=== PATIENT | male | born 1995 | race Caucasian/White ===

== ENCOUNTER 2017-08-05 13:27 | Inpatient (IN) | payer OTHER ==
[2017-08-05 14:49] VITALS: BMI 36.9
--- NOTE | 2017-08-05 15:46 | HP ---
COWS - Scale Resting Pulse: 1= [place] 81-100 Sweatin=Flushed/Facial Moisture Restless Observation: 3= Extraneous Movement Pupil Size: 2= Moderately Dilated Bone or Joint Aches: 2= Severe Diffuse Aches Runny Nose/ Eye Tearin= Runny Nose/Eyes GI Upset > 30mins: 3= Vomiting/Diarrhea Tremor Observation: 2= Slight Tremor Visible Yawning Observation: 2= >3x During Session Anxiety or Irritability: 2=Irritable/Anxious Goose Flesh Skin: 0=Smooth Skin COWS Score: 21 CIWA Score - CIWA Score Nausea/Vomitin Muscle Tremors: 3 Anxiety: 3 Agitation: 3 Paroxysmal Sweats: 2 Orientation: 0-Oriented Tacttile Disturbances: 2-Mild Itch/Numbness/Burn Auditory Disturbances: 2-Mild Harshness/Frighten Visual Disturbances: 1-Very Mild Sensitivity Headache: 2-Mild CIWA-Ar Total Score: 21 Admission ROS BHS - HPI Chief Complaint: i need help tto stop using xanax,oxycodone and marijuana Allergies/Adverse Reactions: Allergies Allergy/AdvReac Type Severity Reaction Status Date / Time No Known Allergies Allergy Verified 08/05/17 15:39 History of Present Illness: this 22 years old male with xanax,oxycodone,marijuana dependence,seeking detox, withdrawal symptom,never been in detox before, anxiety,insomnia denied medical problem seeking detox no signifiant period of sobriety - Ebola screening Have you traveled outside of the country in the last 21 days: No Have you had contact with anyone from an Ebola affected area: No Have you been sick,other than usual withdrawal symptoms: No Patient History - Patient Surgical History Past Surgical History: Yes Hx Breast Surgery: Yes (for gynecomastia at age of 15 years) - Smoking Cessation Smoking history: Current every day smoker Aproximately how many cigarettes per day: 3 Cigars Per Day: 0 Hx Chewing Tobacco Use: No Initiated information on smoking cessation: Yes 'Breaking Loose' booklet given: 08/05/17 - Substance & Tx. History Hx Alcohol Use: No Hx Substance Use: Yes Substance Use Type: Marijuana, Opiates, Tranquilizers - Substances Abused Alprazolam (Xanax) Route: Oral Frequency: Daily Amount used: 4mg Age of first use: 19 Date of Last Use: 08/04/17 Marijuana/Hashish Route: Smoking Frequency: 1-3 times last 30 days Amount used: 1 joint Age of first use: 16 Date of Last Use: 08/04/17 oxycodone Route: Oral Frequency: Daily Amount used: 2-3 30mg pills Age of first use: 19 Date of Last Use: 08/04/17 Family Disease History - Family Disease History Family History: Denies Admission Physical Exam [facility] - Vital Signs Vital Signs: Vital Signs - 24 hr 08/05/17 14:47 Temperature 98 F Pulse Rate 93 H Respiratory 20 Rate Blood Pressure 129/86 - Physical General Appearance: Yes: Moderate Distress, Tremorous, Irritable, Sweating HEENTM: Yes: CHELITA, Pharynx Normal, Tm's normal Respiratory: Yes: Lungs Clear, Normal Breath Sounds, No Respiratory Distress Neck: Yes: Within Normal Limits, Supple, Trachea in good position Breast: Yes: Surgical Scar (s/p bilateral gynocomastia) Cardiology: Yes: Within Normal Limits, Regular Rhythm, Regular Rate, S1, S2 Abdominal: Yes: Within Normal Limits, Normal Bowel Sounds, Non Tender, Flat, Soft Genitourinary: Yes: Within Normal Limits Back: Yes: Muscle Spasm Musculoskeletal: Yes: full range of Motion, Back pain, Muscle Pain Extremities: Yes: Tremors Neurological: Yes: anode builder II-XII NML intact, Fully Oriented, Alert, Motor Strength 5/5 Integumentary: Yes: Dry Lymphatic: Yes: Within Normal Limits - Diagnostic (1) Opioid dependence with withdrawal Current Visit: Yes Status: Acute (2) Uncomplicated sedative, hypnotic, or anxiolytic withdrawal Current Visit: Yes Status: Acute (3) Insomnia secondary to depression with anxiety Current Visit: Yes Status: Acute (4) Nicotine dependence Current Visit: Yes Status: Acute (5) History of gynecomastia Current Visit: Yes Status: Acute Cleared for Admission [facility] - Detox or Rehab [facility] Level of Care: Medically Managed Detox Regimen/Protocol: Methadone/Valium [facility] Breath Alcohol Content Breath Alcohol Content: 0 Urine Drug Screen - Results Drug Screen Negative: No Urine Drug Screen Results: THC-Marijuana, ELTON-Cocaine
[2017-08-05] MEDS ORDERED: MAGNESIUM CITRATE 300 ML BOTTLE PO PRN (16:00)
[2017-08-05] MEDS ORDERED: MAGNESIUM HYDROX 2400MG/30ML ORAL SUSPENSION 30 ML CUP PO PRN (16:00)
[2017-08-05] MEDS ORDERED: guaiFENesin/D-METHORPHAN HB 10 ML UNIT-DOSE CUPS PO PRN (16:00)
[2017-08-05] MEDS ORDERED: MENTHOL/PHENOL 1 EACH UD MM PRN (16:00)
[2017-08-05] MEDS ORDERED: LOPERAMIDE HCL 2 MG CAPSULE PO PRN (16:00)
[2017-08-05] MEDS ORDERED: P-EPHED 60MG/TRIPROLIDI 2.5MG TABLET PO PRN (16:00)
[2017-08-05] MEDS ORDERED: diazePAM 5 MG TABLET PO ONE (18:15)
[2017-08-05] MEDS ORDERED: METHADONE HCL 10 MG TABLET (FOR DETOX USE ONLY) PO ONE ×2 (18:15→23:00)
[2017-08-05] MEDS: diazePAM 5 MG TABLET PO SCH (22:34)
[2017-08-05] MEDS: THIAMINE HCL 100 MG TABLET (FP) PO SCH (22:34)
[2017-08-05] MEDS: hydrOXYzine PAMOATE 25 MG CAPSULE (FP) PO PRN (23:58)
[2017-08-06] MEDS: diazePAM 5 MG TABLET PO SCH ×3 (05:25→22:11)
[2017-08-06] MEDS ORDERED: METHADONE HCL 10 MG TABLET (FOR DETOX USE ONLY) PO SCH (10:00)
[2017-08-06 10:32] LABS: HEMATOCRIT 45.5 % (35.4-49); HEMOGLOBIN 14.9 GM/dL (11.7-16.9); MCHC 32.7 g/dl (32.0-35.9); MEAN CELL VOLUME 85.8 fl (80-96); MEAN PLT VOLUME 8.8 fl (7.5-11.1); PLATELET COUNT 224 K/MM3 (134-434); RBC 5.31 M/mm3 (4.00-5.60); WHITE BLOOD COUNT 7.2 K/mm3 (4.0-10.0)
[2017-08-06 10:37] LABS: CHLORIDE 103 mmol/L (98-107); POTASSIUM 4.1 mmol/L (3.5-5.1); SODIUM 141 mmol/L (136-145)
[2017-08-06] MEDS: PRENATAL VITAMINS W/ FOLIC ACID TABLET (FP) PO SCH (10:40)
[2017-08-06 10:47] LABS: ALBUMIN 3.6 g/dl (3.4-5.0); ALK PHOS 78 U/L (45-117); ANION GAP 9 (8-16); BILIRUBIN,TOTAL 0.6 mg/dL (0.2-1.0); BLOOD UREA NITROGEN 13 mg/dL (7-18); CALCIUM 9.4 mg/dL (8.5-10.1); CO2 29 mmol/L (21-32); CREATININE 0.9 mg/dL (0.7-1.3); GLUCOSE,RANDOM 80 mg/dL (74-106); SGOT/AST 14 U/L (15-37); SGPT/ALT 28 U/L (12-78); TOT PROT 6.9 g/dl (6.4-8.2)
[2017-08-06] MEDS: diazePAM 5 MG TABLET PO PRN ×2 (10:49→17:07)
--- NOTE | 2017-08-06 10:55 | EKG ---
Test Reason : Blood Pressure : / mmHG Vent. Rate : 060 BPM Atrial Rate : 060 BPM P-R Int : 146 ms QRS Dur : 112 ms QT Int : 370 ms P-R-T Axes : 044 -10 025 degrees QTc Int : 370 ms SINUS RHYTHM WITH MARKED SINUS ARRHYTHMIA OTHERWISE NORMAL ECG WHEN COMPARED WITH ECG OF 21-MAY-2015 21:50, NO SIGNIFICANT CHANGE WAS FOUND Confirmed by SARA BINGHAM MD ([id number]) on 08/06/2017 10:55:07 AM Referred By: Confirmed By:SARA BINGHAM MD
--- NOTE | 2017-08-06 10:56 | EKG ---
Test Reason : Blood Pressure : / mmHG Vent. Rate : 077 BPM Atrial Rate : 077 BPM P-R Int : 148 ms QRS Dur : 106 ms QT Int : 364 ms P-R-T Axes : 039 -16 019 degrees QTc Int : 411 ms NORMAL SINUS RHYTHM WITH SINUS ARRHYTHMIA NORMAL ECG WHEN COMPARED WITH ECG OF 05-AUG-2017 18:54, NO SIGNIFICANT CHANGE WAS FOUND Confirmed by OTILIA BLAIR, SARA ([id number]) on 08/06/2017 10:56:33 AM Referred By: Confirmed By:SARA BINGHAM MD
--- NOTE | 2017-08-06 13:57 | CONSULT ---
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 Substance Abuse History: Discussed with patient in this interview.Confirmed [facility] report of addiction to opiates,cannabis and alprazolam . Smoking history: Current every day smoker. Aproximately how many cigarettes per day: 3. Cigars Per Day: 0. Hx Chewing Tobacco Use: No. Initiated information on smoking cessation: Yes. 'Breaking Loose' booklet given: 08/05/17. - Substance & Tx. History. Hx Alcohol Use: No. Hx Substance Use: Yes. Substance Use Type: Marijuana, Opiates, Tranquilizers. - Substances Abused. Alprazolam (Xanax) . Route: Oral. Frequency: Daily. Amount used: 4mg. Age of first use: 19. Date of Last Use: 08/04/17. Marijuana/Hashish. Route: Smoking. Frequency: 1-3 times last 30 days. Amount used: 1 joint. Age of first use: 16. Date of Last Use: 08/04/17. oxycodone. Route: Oral. Frequency: Daily. Amount used : 2-3 30mg pills. Age of first use: 19. Date of Last Use: 08/04/17 Medical History: Patient endorses good general health.Noted past history of surgery for gynecomastia (age 15). Psychiatric History: Patient denies. Physical/Sexual Abuse/Trauma History: Patient denies. Additional Comment: Urine Drug Screen Results: THC-Marijuana, ELTON-Cocaine.Noted. Mental Status Exam - Mental Status Exam Alert and Oriented to: Time, Place, Person Cognitive Function: Good Patient Appearance: Well Groomed Mood: Hopeful, Euthymic Affect: Appropriate, Normal Range Patient Behavior: Fatigued, Appropriate, Cooperative Speech Pattern: Clear, Appropriate Voice Loudness: Normal Thought Process: Intact, Goal Oriented Thought Disorder: Not Present Hallucinations: Denies Suicidal Ideation: Denies Homicidal Ideation: Denies Insight/Judgement: Poor Sleep: Fair Appetite: Good Muscle strength/Tone: Normal Gait/Station: Normal Psychiatric Findings - Problem List ([place] 1, 2,3) (1) Opioid dependence with withdrawal Current Visit: Yes Status: Acute (2) Uncomplicated sedative, hypnotic, or anxiolytic withdrawal Current Visit: Yes Status: Acute (3) Marijuana dependence Current Visit: Yes Status: Acute (4) Cocaine abuse Current Visit: Yes Status: Acute (5) Nicotine dependence Current Visit: Yes Status: Acute Qualifiers: Nicotine product type: cigarettes Substance use status: uncomplicated Qualified Code(s): F17.210 - Nicotine dependence, cigarettes, uncomplicated - Initial Treatment Plan Initial Treatment Plan: Psychoeducation and support.Orientation to unit.Sleep hygiene discussed in this session.Detoxification in progress.Observation.
--- NOTE | 2017-08-06 14:24 | PN ---
[facility] CIWA - CIWA Score Nausea/Vomitin-No Nausea/No Vomiting Muscle Tremors: 3 Anxiety: 4-Mod. Anxious/Guarded Agitation: 3 Paroxysmal Sweats: 3 Orientation: 0-Oriented Tacttile Disturbances: 2-Mild Itch/Numbness/Burn Auditory Disturbances: 0-None Visual Disturbances: 0-None Headache: 3-Moderate CIWA-Ar Total Score: 18 BHS COWS - Scale Resting Pulse: 0= [place] 80 or Below Sweatin= Chills/Flushing Restless Observation: 1= Difficult to Sit Still Pupil Size: 0= Normal to Room Light Bone or Joint Aches: 1= Mild Discomfort Runny Nose/ Eye Tearin= Runny Nose/Eyes GI Upset > 30mins: 0= None Tremor Observation of Outstretched Hands: 2= Slight Tremor Visible Yawning Observation: 1= 1-2x During Session Anxiety or Irritability: 2=Irritable/Anxious Goose Flesh Skin: 3=Piloerection COWS Score: 13 BHS Progress Note (SOAP) Subjective: Sweating, Chills, Tremors, Fatigue, H/A. Objective: PT. A & O X 3, OBSERVED AMBULATING ON UNIT. NO ACUTE DISTRESS. 08/06/17 14:22 Vital Signs Temperature 96 F L 08/06/17 13:59 Pulse Rate 67 08/06/17 13:59 Respiratory Rate 20 08/06/17 13:59 Blood Pressure 123/74 08/06/17 13:59 O2 Sat by Pulse Oximetry (%) Laboratory Tests 08/06/17 08/06/17 07:30 07:30 WBC 7.2 D RBC 5.31 Hgb 14.9 Hct 45.5 MCV 85.8 MCH 28.0 MCHC 32.7 RDW 13.0 Plt Count 224 MPV 8.8 Sodium 141 Potassium 4.1 Chloride 103 Carbon Dioxide 29 Anion Gap 9 BUN 13 D Creatinine 0.9 Creat Clearance w eGFR > 60 Random Glucose 80 Calcium 9.4 Total Bilirubin 0.6 AST 14 L D ALT 28 Alkaline Phosphatase 78 Total Protein 6.9 Albumin 3.6 LABS NOTED. UA, RPR RESULTS PENDING. 08/06/17 14:23 Assessment: 08/06/17 14:22 WITHDRAWAL SYMPTOMS. Plan: CONTINUE DETOX.
[2017-08-06] MEDS: ACETAMINOPHEN 325 MG TABLET (FP) PO PRN (19:07)
[2017-08-06] MEDS: THIAMINE HCL 100 MG TABLET (FP) PO SCH (22:11)
[2017-08-07] MEDS: diazePAM 5 MG TABLET PO PRN ×3 (00:56→17:25)
[2017-08-07] MEDS: METHADONE HCL 5 MG TABLET (FOR DETOX USE ONLY) PO SCH (10:41)
[2017-08-07] MEDS: PRENATAL VITAMINS W/ FOLIC ACID TABLET (FP) PO SCH (10:41)
[2017-08-07] MEDS: diazePAM 5 MG TABLET PO SCH ×2 (10:41→22:16)
[2017-08-07 15:25] LABS: URINE APPEARANCE CLEAR; URINE BILIRUBIN NEGATIVE (NEGATIVE); URINE BLOOD NEGATIVE (NEGATIVE); URINE COLOR LTYELLOW; URINE GLUCOSE (UA) NEGATIVE (NEGATIVE); URINE KETONE NEGATIVE (NEGATIVE); URINE LEUK ESTERASE NEGATIVE (NEGATIVE); URINE NITRITE NEGATIVE (NEGATIVE); URINE PROTEIN NEGATIVE (NEGATIVE); URINE UROBILINOGEN NEGATIVE mg/dL (0.2-1.0)
--- NOTE | 2017-08-07 15:56 | PN ---
[facility] CIWA - CIWA Score Nausea/Vomitin-No Nausea/No Vomiting Muscle Tremors: 3 Anxiety: 4-Mod. Anxious/Guarded Agitation: 3 Paroxysmal Sweats: 3 Orientation: 0-Oriented Tacttile Disturbances: 2-Mild Itch/Numbness/Burn Auditory Disturbances: 0-None Visual Disturbances: 0-None Headache: 0-None Present CIWA-Ar Total Score: 15 S COWS - Scale Resting Pulse: 0= [place] 80 or Below Sweatin= Chills/Flushing Restless Observation: 1= Difficult to Sit Still Pupil Size: 0= Normal to Room Light Bone or Joint Aches: 2= Severe Diffuse Aches Runny Nose/ Eye Tearin= None GI Upset > 30mins: 0= None Tremor Observation of Outstretched Hands: 2= Slight Tremor Visible Yawning Observation: 1= 1-2x During Session Anxiety or Irritability: 2=Irritable/Anxious Goose Flesh Skin: 3=Piloerection COWS Score: 12 S Progress Note (SOAP) Subjective: Interrupted Sleep, Tremors, Anxious, Sweating. Objective: PT. A & O X 3, OBSERVED AMBULATING ON UNIT. NO ACUTE DISTRESS. 08/07/17 15:55 Vital Signs Temperature 95.2 F L 08/07/17 13:55 Pulse Rate 99 H 08/07/17 13:55 Respiratory Rate 18 08/07/17 13:55 Blood Pressure 134/89 08/07/17 13:55 O2 Sat by Pulse Oximetry (%) Laboratory Tests 08/06/17 08/06/17 08/06/17 07:30 07:30 07:30 WBC 7.2 D RBC 5.31 Hgb 14.9 Hct 45.5 MCV 85.8 MCH 28.0 MCHC 32.7 RDW 13.0 Plt Count 224 MPV 8.8 Sodium 141 Potassium 4.1 Chloride 103 Carbon Dioxide 29 Anion Gap 9 BUN 13 D Creatinine 0.9 Creat Clearance w eGFR > 60 Random Glucose 80 Calcium 9.4 Total Bilirubin 0.6 AST 14 L D ALT 28 Alkaline Phosphatase 78 Total Protein 6.9 Albumin 3.6 Urine Color Urine Appearance Urine pH Ur Specific [place] Urine Protein Urine Glucose (UA) Urine Ketones Urine Blood Urine Nitrite Urine Bilirubin Urine Urobilinogen Ur Leukocyte Esterase RPR Titer Nonreactive 08/07/17 10:40 WBC RBC Hgb Hct MCV MCH MCHC RDW Plt Count MPV Sodium Potassium Chloride Carbon Dioxide Anion Gap BUN Creatinine Creat Clearance w eGFR Random Glucose Calcium Total Bilirubin AST ALT Alkaline Phosphatase Total Protein Albumin Urine Color Ltyellow Urine Appearance Clear Urine pH 6.0 Ur Specific [place] 1.017 Urine Protein Negative Urine Glucose (UA) Negative Urine Ketones Negative Urine Blood Negative Urine Nitrite Negative Urine Bilirubin Negative Urine Urobilinogen Negative Ur Leukocyte Esterase Negative RPR Titer LABS NOTED. Assessment: 08/07/17 15:56 WITHDRAWAL SYMPTOMS. Plan: CONTINUE DETOX.
[2017-08-07] MEDS: THIAMINE HCL 100 MG TABLET (FP) PO SCH (22:16)
[2017-08-07] MEDS: MAG HYDROX/AL HYDROX/SIMETH 30 ML UNIT-DOSE CUP PO PRN (23:08)
[2017-08-08] MEDS: diazePAM 5 MG TABLET PO PRN ×2 (07:37→13:21)
[2017-08-08] MEDS: diazePAM 5 MG TABLET PO SCH ×2 (10:54→22:14)
[2017-08-08] MEDS: METHADONE HCL 5 MG TABLET (FOR DETOX USE ONLY) PO SCH (10:54)
[2017-08-08] MEDS: PRENATAL VITAMINS W/ FOLIC ACID TABLET (FP) PO SCH (10:54)
--- NOTE | 2017-08-08 12:43 | PN ---
BHS Progress Note (SOAP) Subjective: Sweating, Anxious. Objective: PT. A & O X 3, OBSERVED AMBULATING ON UNIT. NO ACUTE DISTRESS. 08/08/17 12:42 Vital Signs Temperature 96.9 F L 08/08/17 09:46 Pulse Rate 97 H 08/08/17 09:46 Respiratory Rate 18 08/08/17 09:46 Blood Pressure 127/88 08/08/17 09:46 O2 Sat by Pulse Oximetry (%) Laboratory Tests 08/06/17 08/06/17 08/06/17 07:30 07:30 07:30 WBC 7.2 D RBC 5.31 Hgb 14.9 Hct 45.5 MCV 85.8 MCH 28.0 MCHC 32.7 RDW 13.0 Plt Count 224 MPV 8.8 Sodium 141 Potassium 4.1 Chloride 103 Carbon Dioxide 29 Anion Gap 9 BUN 13 D Creatinine 0.9 Creat Clearance w eGFR > 60 Random Glucose 80 Calcium 9.4 Total Bilirubin 0.6 AST 14 L D ALT 28 Alkaline Phosphatase 78 Total Protein 6.9 Albumin 3.6 Urine Color Urine Appearance Urine pH Ur Specific [place] Urine Protein Urine Glucose (UA) Urine Ketones Urine Blood Urine Nitrite Urine Bilirubin Urine Urobilinogen Ur Leukocyte Esterase RPR Titer Nonreactive 08/07/17 10:40 WBC RBC Hgb Hct MCV MCH MCHC RDW Plt Count MPV Sodium Potassium Chloride Carbon Dioxide Anion Gap BUN Creatinine Creat Clearance w eGFR Random Glucose Calcium Total Bilirubin AST ALT Alkaline Phosphatase Total Protein Albumin Urine Color Ltyellow Urine Appearance Clear Urine pH 6.0 Ur Specific [place] 1.017 Urine Protein Negative Urine Glucose (UA) Negative Urine Ketones Negative Urine Blood Negative Urine Nitrite Negative Urine Bilirubin Negative Urine Urobilinogen Negative Ur Leukocyte Esterase Negative RPR Titer LABS NOTED. Assessment: 08/08/17 12:42 WITHDRAWAL SYMPTOMS. Plan: CONTINUE DETOX.
[2017-08-08] MEDS: IBUPROFEN 400 MG TABLET (FP) PO PRN (13:40)
[2017-08-08] MEDS: MAG HYDROX/AL HYDROX/SIMETH 30 ML UNIT-DOSE CUP PO PRN (16:39)
[2017-08-08] MEDS: hydrOXYzine PAMOATE 25 MG CAPSULE (FP) PO PRN (16:39)
[2017-08-08] MEDS: ACETAMINOPHEN 325 MG TABLET (FP) PO PRN (18:59)
[2017-08-08] MEDS: THIAMINE HCL 100 MG TABLET (FP) PO SCH (22:13)
[2017-08-09] MEDS: MAG HYDROX/AL HYDROX/SIMETH 30 ML UNIT-DOSE CUP PO PRN ×2 (02:59→18:07)
[2017-08-09] MEDS ORDERED: diazePAM 5 MG TABLET PO SCH (10:00)
[2017-08-09] MEDS ORDERED: METHADONE HCL 10 MG TABLET (FOR DETOX USE ONLY) PO SCH (10:00)
[2017-08-09] MEDS: PRENATAL VITAMINS W/ FOLIC ACID TABLET (FP) PO SCH (10:23)
[2017-08-09] MEDS: CYCLOBENZAPRINE HCL 10 MG TABLET (FP) PO PRN ×2 (12:42→22:41)
--- NOTE | 2017-08-09 15:30 | PN ---
BHS Progress Note (SOAP) Subjective: Sweating, pain/spasm in legs, anxious, sweating Objective: 08/09/17 15:28 Last Vital Signs Temp Pulse Resp BP Pulse Ox 97.3 F L 97 H 18 133/87 08/09/17 13:44 08/09/17 13:44 08/09/17 13:44 08/09/17 13:44 Laboratory Tests 08/06/17 08/06/17 08/06/17 07:30 07:30 07:30 WBC 7.2 D RBC 5.31 Hgb 14.9 Hct 45.5 MCV 85.8 MCH 28.0 MCHC 32.7 RDW 13.0 Plt Count 224 MPV 8.8 Sodium 141 Potassium 4.1 Chloride 103 Carbon Dioxide 29 Anion Gap 9 BUN 13 D Creatinine 0.9 Creat Clearance w eGFR > 60 Random Glucose 80 Calcium 9.4 Total Bilirubin 0.6 AST 14 L D ALT 28 Alkaline Phosphatase 78 Total Protein 6.9 Albumin 3.6 Urine Color Urine Appearance Urine pH Ur Specific [place] Urine Protein Urine Glucose (UA) Urine Ketones Urine Blood Urine Nitrite Urine Bilirubin Urine Urobilinogen Ur Leukocyte Esterase RPR Titer Nonreactive 08/07/17 10:40 WBC RBC Hgb Hct MCV MCH MCHC RDW Plt Count MPV Sodium Potassium Chloride Carbon Dioxide Anion Gap BUN Creatinine Creat Clearance w eGFR Random Glucose Calcium Total Bilirubin AST ALT Alkaline Phosphatase Total Protein Albumin Urine Color Ltyellow Urine Appearance Clear Urine pH 6.0 Ur Specific [place] 1.017 Urine Protein Negative Urine Glucose (UA) Negative Urine Ketones Negative Urine Blood Negative Urine Nitrite Negative Urine Bilirubin Negative Urine Urobilinogen Negative Ur Leukocyte Esterase Negative RPR Titer Labs noted Assessment: 08/09/17 15:30 Withdrawal symptoms Plan: Continue detox
[2017-08-09] MEDS: IBUPROFEN 400 MG TABLET (FP) PO PRN (17:10)
[2017-08-09] MEDS: hydrOXYzine PAMOATE 25 MG CAPSULE (FP) PO PRN ×2 (17:10→22:41)
[2017-08-09] MEDS: THIAMINE HCL 100 MG TABLET (FP) PO SCH (22:39)
[2017-08-10] MEDS ORDERED: METHADONE HCL 5 MG TABLET (FOR DETOX USE ONLY) PO SCH (06:00)
[2017-08-10] MEDS: CYCLOBENZAPRINE HCL 10 MG TABLET (FP) PO PRN (07:22)
[2017-08-10 09:23] VITALS: BP 128/78; PULSE 77; TEMP 96.8
[2017-08-10] MEDS: PRENATAL VITAMINS W/ FOLIC ACID TABLET (FP) PO SCH (09:34)
--- NOTE | 2017-08-10 12:11 | DS ---
[facility] Detox Discharge Summary Admission Date: 08/05/17 Discharge Date: 08/10/17 - History Pertinent Past History: None - Physical Exam Results Vital Signs: Vital Signs Temperature 96.8 F L 08/10/17 09:21 Pulse Rate 77 08/10/17 09:21 Respiratory Rate 18 08/10/17 09:21 Blood Pressure 128/78 08/10/17 09:21 O2 Sat by Pulse Oximetry (%) Pertinent Admission Physical Exam Findings: withdrawal sx Vital Signs Temperature 96.8 F L 08/10/17 09:21 Pulse Rate 77 08/10/17 09:21 Respiratory Rate 18 08/10/17 09:21 Blood Pressure 128/78 08/10/17 09:21 O2 Sat by Pulse Oximetry (%) Laboratory Last Values WBC 7.2 K/mm3 (4.0-10.0) D 08/06/17 07:30 RBC 5.31 M/mm3 (4.00-5.60) 08/06/17 07:30 Hgb 14.9 GM/dL (11.7-16.9) 08/06/17 07:30 Hct 45.5 % (35.4-49) 08/06/17 07:30 MCV 85.8 fl (80-96) 08/06/17 07:30 MCH 28.0 pg (25.7-33.7) 08/06/17 07:30 MCHC 32.7 g/dl (32.0-35.9) 08/06/17 07:30 RDW 13.0 % (11.9-15.9) 08/06/17 07:30 Plt Count 224 K/MM3 (134-434) 08/06/17 07:30 MPV 8.8 fl (7.5-11.1) 08/06/17 07:30 Sodium 141 mmol/L (136-145) 08/06/17 07:30 Potassium 4.1 mmol/L (3.5-5.1) 08/06/17 07:30 Chloride 103 mmol/L (98-107) 08/06/17 07:30 Carbon Dioxide 29 mmol/L (21-32) 08/06/17 07:30 Anion Gap 9 (8-16) 08/06/17 07:30 BUN 13 mg/dL (7-18) D 08/06/17 07:30 Creatinine 0.9 mg/dL (0.7-1.3) 08/06/17 07:30 Creat Clearance w eGFR > 60 (>60) 08/06/17 07:30 Random Glucose 80 mg/dL (74-106) 08/06/17 07:30 Calcium 9.4 mg/dL (8.5-10.1) 08/06/17 07:30 Total Bilirubin 0.6 mg/dL (0.2-1.0) 08/06/17 07:30 AST 14 U/L (15-37) L D 08/06/17 07:30 ALT 28 U/L (12-78) 08/06/17 07:30 Alkaline Phosphatase 78 U/L (45-117) 08/06/17 07:30 Total Protein 6.9 g/dl (6.4-8.2) 08/06/17 07:30 Albumin 3.6 g/dl (3.4-5.0) 08/06/17 07:30 Urine Color Ltyellow 08/07/17 10:40 Urine Appearance Clear 08/07/17 10:40 Urine pH 6.0 (5.0-8.0) 08/07/17 10:40 Ur Specific [place] 1.017 (1.001-1.035) 08/07/17 10:40 Urine Protein Negative (NEGATIVE) 08/07/17 10:40 Urine Glucose (UA) Negative (NEGATIVE) 08/07/17 10:40 Urine Ketones Negative (NEGATIVE) 08/07/17 10:40 Urine Blood Negative (NEGATIVE) 08/07/17 10:40 Urine Nitrite Negative (NEGATIVE) 08/07/17 10:40 Urine Bilirubin Negative (NEGATIVE) 08/07/17 10:40 Urine Urobilinogen Negative mg/dL (0.2-1.0) 08/07/17 10:40 Ur Leukocyte Esterase Negative (NEGATIVE) 08/07/17 10:40 RPR Titer Nonreactive (NONREACTIVE) 08/06/17 07:30 - Treatment Hospital Course: Detox Protocol Followed, Detoxed Safely, Responded well, Discharged Condition Good Patient has Accepted a Rehab Referral to: [facility] - Medication Discharge Medications: Ambulatory Orders NK [No Known Home Medication] 05/21/15 - Diagnosis (1) Opioid dependence with withdrawal Current Visit: Yes Status: Acute (2) Uncomplicated sedative, hypnotic, or anxiolytic withdrawal Current Visit: Yes Status: Acute (3) Nicotine dependence Current Visit: Yes Status: Chronic Qualifiers: Nicotine product type: cigarettes Substance use status: uncomplicated Qualified Code(s): F17.210 - Nicotine dependence, cigarettes, uncomplicated (4) Marijuana dependence Current Visit: Yes Status: Acute (5) History of gynecomastia Current Visit: Yes Status: Acute (6) Insomnia secondary to depression with anxiety Current Visit: Yes Status: Acute - AMA Did Patient Leave Against Medical Advice: No
== END 2017-08-10 09:33 | disposition home or self-care (01) | DRG 773 ==
LOC: YASAS 13:27 → Y3N 17:11
PROVIDERS: ADMIT Internal Medicine; ATTEND Internal Medicine
PROC: HZ2ZZZZ Detoxification Services for Substance Abuse Treatment (ICD-10-PCS; principal; 2017-08-05)
DX: F11.23 Opioid dependence with withdrawal (principal); F13.230 Sedative, hypnotic or anxiolytic dependence with withdrawal, uncomplicated; F12.20 Cannabis dependence, uncomplicated; F14.10 Cocaine abuse, uncomplicated; F17.210 Nicotine dependence, cigarettes, uncomplicated; F51.05 Insomnia due to other mental disorder
CPT/HCPCS: 36415; 80053; 81003; 85027; 86593; 93005; 93010

== ENCOUNTER 2020-08-28 10:53 | Inpatient (IN) | payer OTHER ==
[2020-08-28] MEDS ORDERED: MAGNESIUM HYDROX 2400MG/30ML ORAL SUSPENSION 30 ML CUP PO PRN (12:27)
[2020-08-28] MEDS ORDERED: MAGNESIUM CITRATE 300 ML BOTTLE PO PRN (12:27)
[2020-08-28] MEDS ORDERED: cloNIDine HCL 0.1 MG TABLET PO PRN (12:27)
[2020-08-28] MEDS ORDERED: IBUPROFEN 400 MG TABLET (FP) PO PRN (12:27)
[2020-08-28] MEDS ORDERED: MENTHOL/PHENOL 1 EACH UD MM PRN (12:27)
[2020-08-28] MEDS ORDERED: ACETAMINOPHEN 325 MG TABLET (FP) PO PRN ×2 (12:27)
[2020-08-28] MEDS ORDERED: METHOCARBAMOL 500 MG TABLET PO PRN (12:27)
[2020-08-28] MEDS ORDERED: BISMUTH SUBSALICYLATE 524 MG/30 ML UD PO PRN (12:27)
[2020-08-28] MEDS ORDERED: ONDANSETRON *ODT* 4 MG TABLET SL PRN (12:27)
[2020-08-28] MEDS ORDERED: MAG HYDROX/AL HYDROX/SIMETH 30 ML UNIT-DOSE CUP PO PRN (12:27)
[2020-08-28 12:29] VITALS: BMI 31.0
[2020-08-28] MEDS ORDERED: METHADONE HCL 10 MG TABLET (FOR DETOX USE ONLY) PO ONE (12:45)
[2020-08-28] MEDS: LORazepam 1 MG TABLET PO PRN (13:44)
[2020-08-28] MEDS: hydrOXYzine PAMOATE 25 MG CAPSULE (FP) PO SCH ×3 (13:44→22:22)
[2020-08-28] MEDS: PRENATAL VITAMINS W/ FOLIC ACID TABLET (FP) PO SCH (13:45)
[2020-08-28] MEDS: LORazepam 2 MG TABLET PO SCH ×2 (17:29→22:21)
[2020-08-28 18:26] LABS: HEMATOCRIT 44.9 % (35.4-49); HEMOGLOBIN 14.9 GM/dL (11.7-16.9); MCH 30.4 pg (25.7-33.7); MCHC 33.2 g/dl (32.0-35.9); MEAN CELL VOLUME 91.3 fl (80-96); MEAN PLT VOLUME 9.6 fl (7.5-11.1); PLATELET COUNT 210 K/MM3 (134-434); RBC 4.92 M/mm3 (4.00-5.60); RDW 13.1 % (11.9-15.9); WHITE BLOOD COUNT 6.8 K/mm3 (4.0-10.0)
[2020-08-28 18:34] LABS: POTASSIUM 4.1 mmol/L (3.5-5.1)
[2020-08-28 18:39] LABS: ALBUMIN 3.9 g/dl (3.4-5.0)
[2020-08-28 18:41] LABS: CALCIUM 9.7 mg/dL (8.5-10.1)
[2020-08-28 18:42] LABS: BLOOD UREA NITROGEN 14.3 mg/dL (7-18)
[2020-08-28 18:47] LABS: BILIRUBIN,TOTAL 1.2 mg/dL (0.2-1); TOT PROT 7.6 g/dl (6.4-8.2)
[2020-08-28] MEDS: THIAMINE HCL 100 MG TABLET (FP) PO SCH (22:22)
[2020-08-28] MEDS: MELATONIN 5 MG TABLETS PO SCH (22:22)
[2020-08-29] MEDS: hydrOXYzine PAMOATE 25 MG CAPSULE (FP) PO SCH ×5 (05:13→22:04)
[2020-08-29] MEDS: LORazepam 2 MG TABLET PO SCH ×4 (05:13→22:05)
[2020-08-29] MEDS ORDERED: METHADONE HCL 10 MG TABLET (FOR DETOX USE ONLY) ONE (09:16)
[2020-08-29] MEDS ORDERED: METHADONE HCL 5 MG TABLET (FOR DETOX USE ONLY) ONE (09:16)
[2020-08-29] MEDS ORDERED: METHADONE (DETOX) 20 MG, METHADONE (DETOX) 5 MG PO ONE (10:00)
[2020-08-29] MEDS: PRENATAL VITAMINS W/ FOLIC ACID TABLET (FP) PO SCH (10:08)
[2020-08-29 11:36] LABS: HIV INTERPRETATION NEGATIVE (NEGATIVE)
[2020-08-29] MEDS: MELATONIN 5 MG TABLETS PO SCH (22:04)
[2020-08-29] MEDS: THIAMINE HCL 100 MG TABLET (FP) PO SCH (22:04)
[2020-08-30] MEDS: LORazepam 1 MG TABLET PO PRN (02:24)
[2020-08-30] MEDS: hydrOXYzine PAMOATE 25 MG CAPSULE (FP) PO SCH ×5 (06:17→22:17)
[2020-08-30] MEDS: LORazepam 1 MG TABLET PO SCH ×4 (06:17→22:16)
[2020-08-30] MEDS ORDERED: METHADONE HCL 10 MG TABLET (FOR DETOX USE ONLY) PO ONE (10:00)
[2020-08-30] MEDS: PRENATAL VITAMINS W/ FOLIC ACID TABLET (FP) PO SCH (10:44)
[2020-08-30] MEDS: MELATONIN 5 MG TABLETS PO SCH (22:16)
[2020-08-30] MEDS: THIAMINE HCL 100 MG TABLET (FP) PO SCH (22:16)
[2020-08-31] MEDS ORDERED: LORazepam 0.5 MG TABLET PO PRN
[2020-08-31] MEDS ORDERED: LORazepam 0.5 MG TABLET PO SCH (05:00)
[2020-08-31] MEDS: hydrOXYzine PAMOATE 25 MG CAPSULE (FP) PO SCH (05:39)
[2020-08-31 07:32] VITALS: BP 109/61; PULSE 75; TEMP 97.4
[2020-08-31] MEDS ORDERED: METHADONE (DETOX) 10 MG, METHADONE (DETOX) 5 MG PO ONE (10:00)
[2020-09-01] MEDS ORDERED: LORazepam 0.5 MG TABLET PO ONE (05:00)
[2020-09-01] MEDS ORDERED: METHADONE HCL 10 MG TABLET (FOR DETOX USE ONLY) PO ONE (10:00)
[2020-09-02] MEDS ORDERED: METHADONE HCL 5 MG TABLET (FOR DETOX USE ONLY) PO ONE (06:00)
== END 2020-08-31 09:20 | disposition left against medical advice (07) | DRG 770 ==
LOC: YASAS 10:53 → Y3N 12:33
PROVIDERS: ADMIT Allergy & Immunology; ATTEND Allergy & Immunology
PROC: HZ2ZZZZ Detoxification Services for Substance Abuse Treatment (ICD-10-PCS; principal; 2020-08-28)
DX: F11.23 Opioid dependence with withdrawal (principal); F13.230 Sedative, hypnotic or anxiolytic dependence with withdrawal, uncomplicated; F14.20 Cocaine dependence, uncomplicated; F19.20 Other psychoactive substance dependence, uncomplicated; F12.20 Cannabis dependence, uncomplicated; F17.210 Nicotine dependence, cigarettes, uncomplicated; F51.05 Insomnia due to other mental disorder; N62 Hypertrophy of breast; Z86.39 Personal history of other endocrine, nutritional and metabolic disease
CPT/HCPCS: 36415; 80053; 85027; 86780; 87389; 93005; 93010; C9803; U0003

== ENCOUNTER 2020-10-18 20:10 | Inpatient (IN) | payer OTHER ==
[2020-10-18 21:10] VITALS: BMI 30.7
[2020-10-18] MEDS ORDERED: ACETAMINOPHEN 325 MG TABLET (FP) PO PRN ×2 (21:38)
[2020-10-18] MEDS ORDERED: ONDANSETRON *ODT* 4 MG TABLET SL PRN (21:38)
[2020-10-18] MEDS ORDERED: diazePAM 5 MG TABLET PO PRN (21:38)
[2020-10-18] MEDS ORDERED: MAGNESIUM CITRATE 300 ML BOTTLE PO PRN (21:38)
[2020-10-18] MEDS ORDERED: MAG HYDROX/AL HYDROX/SIMETH 30 ML UNIT-DOSE CUP PO PRN (21:38)
[2020-10-18] MEDS ORDERED: BISMUTH SUBSALICYLATE 524 MG/30 ML UD PO PRN (21:38)
[2020-10-18] MEDS ORDERED: MAGNESIUM HYDROX 2400MG/30ML ORAL SUSPENSION 30 ML CUP PO PRN (21:38)
[2020-10-18] MEDS ORDERED: cloNIDine HCL 0.1 MG TABLET PO PRN (21:38)
[2020-10-18] MEDS ORDERED: METHADONE HCL 10 MG TABLET (FOR DETOX USE ONLY) PO ONE (21:38)
[2020-10-18] MEDS ORDERED: IBUPROFEN 400 MG TABLET (FP) PO PRN (21:38)
[2020-10-18] MEDS ORDERED: MENTHOL/PHENOL 1 EACH UD MM PRN (21:38)
[2020-10-18] MEDS: THIAMINE HCL 100 MG TABLET (FP) PO SCH (22:50)
[2020-10-18] MEDS: diazePAM 5 MG TABLET PO SCH (22:50)
[2020-10-18] MEDS: MELATONIN 5 MG TABLETS PO SCH (22:50)
[2020-10-19] MEDS: diazePAM 5 MG TABLET PO SCH ×4 (06:34→22:32)
[2020-10-19] MEDS ORDERED: METHADONE HCL 10 MG TABLET (FOR DETOX USE ONLY) ONE (08:42)
[2020-10-19] MEDS ORDERED: METHADONE HCL 5 MG TABLET (FOR DETOX USE ONLY) ONE (08:42)
[2020-10-19] MEDS ORDERED: METHADONE (DETOX) 20 MG, METHADONE (DETOX) 5 MG PO ONE (10:00)
[2020-10-19] MEDS: PRENATAL VITAMINS W/ FOLIC ACID TABLET (FP) PO SCH (10:18)
[2020-10-19 11:02] LABS: HEMATOCRIT 45.9 % (35.4-49); HEMOGLOBIN 15.5 GM/dL (11.7-16.9); MCH 30.9 pg (25.7-33.7); MCHC 33.8 g/dl (32.0-35.9); MEAN CELL VOLUME 91.6 fl (80-96); MEAN PLT VOLUME 9.3 fl (7.5-11.1); PLATELET COUNT 221 K/MM3 (134-434); RBC 5.01 M/mm3 (4.00-5.60); RDW 13.2 % (11.9-15.9); WHITE BLOOD COUNT 5.7 K/mm3 (4.0-10.0)
[2020-10-19 11:08] LABS: CHLORIDE 101 mmol/L (98-107); SODIUM 138 mmol/L (136-145)
[2020-10-19 11:15] LABS: CALCIUM 9.8 mg/dL (8.5-10.1)
[2020-10-19 11:16] LABS: ANION GAP 3 MMOL/L (8-16); BLOOD UREA NITROGEN 16.3 mg/dL (7-18); CO2 34 mmol/L (21-32)
[2020-10-19 11:17] LABS: SGOT/AST 16 U/L (15-37); SGPT/ALT 23 U/L (13-61)
[2020-10-19 11:19] LABS: ALK PHOS 76 U/L (45-117); TOT PROT 7.7 g/dl (6.4-8.2)
[2020-10-19 11:23] LABS: GLUCOSE,RANDOM 49 mg/dL (74-106)
[2020-10-19] MEDS: THIAMINE HCL 100 MG TABLET (FP) PO SCH (22:32)
[2020-10-19] MEDS: METHOCARBAMOL 500 MG TABLET PO PRN (22:32)
[2020-10-19] MEDS: MELATONIN 5 MG TABLETS PO SCH (22:32)
[2020-10-20] MEDS: diazePAM 5 MG TABLET PO SCH ×3 (06:01→22:20)
[2020-10-20] MEDS ORDERED: METHADONE HCL 10 MG TABLET (FOR DETOX USE ONLY) PO ONE (10:00)
[2020-10-20] MEDS: PRENATAL VITAMINS W/ FOLIC ACID TABLET (FP) PO SCH (10:09)
[2020-10-20] MEDS: MELATONIN 5 MG TABLETS PO SCH (22:20)
[2020-10-20] MEDS: THIAMINE HCL 100 MG TABLET (FP) PO SCH (22:21)
[2020-10-21] MEDS: diazePAM 5 MG TABLET PO SCH ×2 (06:32→17:20)
[2020-10-21] MEDS ORDERED: METHADONE HCL 5 MG TABLET (FOR DETOX USE ONLY) ONE (09:47)
[2020-10-21] MEDS ORDERED: METHADONE HCL 10 MG TABLET (FOR DETOX USE ONLY) ONE (09:47)
[2020-10-21] MEDS ORDERED: METHADONE (DETOX) 10 MG, METHADONE (DETOX) 5 MG PO ONE (10:00)
[2020-10-21] MEDS: PRENATAL VITAMINS W/ FOLIC ACID TABLET (FP) PO SCH (10:10)
[2020-10-21] MEDS: MELATONIN 5 MG TABLETS PO SCH (22:42)
[2020-10-21] MEDS: METHOCARBAMOL 500 MG TABLET PO PRN (22:42)
[2020-10-21] MEDS: THIAMINE HCL 100 MG TABLET (FP) PO SCH (22:42)
[2020-10-22] MEDS ORDERED: diazePAM 5 MG TABLET PO ONE (06:00)
[2020-10-22] MEDS ORDERED: METHADONE HCL 10 MG TABLET (FOR DETOX USE ONLY) PO ONE (10:00)
[2020-10-22 10:06] LABS: SARS-CoV-2 NAA Not Detected (Not Detected)
[2020-10-22] MEDS: PRENATAL VITAMINS W/ FOLIC ACID TABLET (FP) PO SCH (10:07)
[2020-10-22] MEDS: METHOCARBAMOL 500 MG TABLET PO PRN ×2 (10:08→17:21)
[2020-10-22] MEDS: MELATONIN 5 MG TABLETS PO SCH (22:11)
[2020-10-22] MEDS: THIAMINE HCL 100 MG TABLET (FP) PO SCH (22:11)
[2020-10-23] MEDS ORDERED: METHADONE HCL 5 MG TABLET (FOR DETOX USE ONLY) PO ONE (06:00)
[2020-10-23] MEDS: PRENATAL VITAMINS W/ FOLIC ACID TABLET (FP) PO SCH (10:06)
[2020-10-23 10:53] VITALS: BP 135/87; PULSE 82; TEMP 98.6
== END 2020-10-23 11:57 | disposition other institution (70) | DRG 773 ==
LOC: YASAS 20:10 → Y6N 21:42
PROVIDERS: ADMIT Allergy & Immunology; ATTEND Allergy & Immunology
PROC: HZ2ZZZZ Detoxification Services for Substance Abuse Treatment (ICD-10-PCS; principal; 2020-10-18)
DX: F11.23 Opioid dependence with withdrawal (principal); F10.230 Alcohol dependence with withdrawal, uncomplicated; F13.230 Sedative, hypnotic or anxiolytic dependence with withdrawal, uncomplicated; F19.20 Other psychoactive substance dependence, uncomplicated; F17.210 Nicotine dependence, cigarettes, uncomplicated; F19.24 Other psychoactive substance dependence with psychoactive substance-induced mood disorder
CPT/HCPCS: 36415; 80053; 82962; 85027; 86780; C9803; U0003; U0005

== ENCOUNTER 2020-10-23 12:00 | Inpatient (IN) | payer OTHER ==
[2020-10-23] MEDS ORDERED: NALOXONE (NARCAN) HCL 4 MG/0.1 ML SPRAY NS PRN (14:09)
[2020-10-23] MEDS ORDERED: hydrOXYzine PAMOATE 25 MG CAPSULE (FP) PO PRN (14:09)
[2020-10-23] MEDS ORDERED: LOPERAMIDE HCL 2 MG CAPSULE PO PRN (14:09)
[2020-10-23] MEDS ORDERED: P-EPHED 60MG/TRIPROLIDI 2.5MG TABLET PO PRN (14:09)
[2020-10-23] MEDS ORDERED: MAGNESIUM HYDROX 2400MG/30ML ORAL SUSPENSION 30 ML CUP PO PRN (14:09)
[2020-10-23] MEDS ORDERED: MAGNESIUM CITRATE 300 ML BOTTLE PO PRN (14:09)
[2020-10-23] MEDS ORDERED: NICOTINE POLACRILEX 2 MG GUM BUC PRN (14:09)
[2020-10-23] MEDS ORDERED: guaiFENesin 200 MG/10 ML 10 ML UNIT-DOSE CUPS PO PRN (14:09)
[2020-10-23] MEDS ORDERED: IBUPROFEN 400 MG TABLET (FP) PO PRN (14:09)
[2020-10-23] MEDS: THIAMINE HCL 100 MG TABLET (FP) PO SCH (21:21)
[2020-10-23] MEDS: MELATONIN 5 MG TABLETS PO SCH (21:21)
[2020-10-23] MEDS: MAG HYDROX/AL HYDROX/SIMETH 30 ML UNIT-DOSE CUP PO PRN (21:22)
[2020-10-24] MEDS ORDERED: NICOTINE 7 MG/24 HOURS TOPICAL PATCH TD SCH (10:00)
[2020-10-24] MEDS: PRENATAL VITAMINS W/ FOLIC ACID TABLET (FP) PO SCH (10:12)
[2020-10-24] MEDS ORDERED: FLU VACCINE (FLULAVAL) PF 60 MCG/0.5 ML SYRINGE 2020-2021 IM ONE (12:00)
[2020-10-24] MEDS: MELATONIN 5 MG TABLETS PO SCH (21:05)
[2020-10-24] MEDS: THIAMINE HCL 100 MG TABLET (FP) PO SCH (21:05)
[2020-10-25] MEDS: PRENATAL VITAMINS W/ FOLIC ACID TABLET (FP) PO SCH (10:21)
[2020-10-25] MEDS: MAG HYDROX/AL HYDROX/SIMETH 30 ML UNIT-DOSE CUP PO PRN (17:52)
[2020-10-25] MEDS: MELATONIN 5 MG TABLETS PO SCH (21:26)
[2020-10-25] MEDS: THIAMINE HCL 100 MG TABLET (FP) PO SCH (21:26)
[2020-10-26] MEDS: PRENATAL VITAMINS W/ FOLIC ACID TABLET (FP) PO SCH (10:15)
[2020-10-26] MEDS: MELATONIN 5 MG TABLETS PO SCH (21:50)
[2020-10-26] MEDS: THIAMINE HCL 100 MG TABLET (FP) PO SCH (21:50)
[2020-10-26] MEDS: ACETAMINOPHEN 325 MG TABLET (FP) PO PRN (21:51)
[2020-10-27] MEDS: PRENATAL VITAMINS W/ FOLIC ACID TABLET (FP) PO SCH (09:43)
[2020-10-27] MEDS: MELATONIN 5 MG TABLETS PO SCH (21:11)
[2020-10-27] MEDS: THIAMINE HCL 100 MG TABLET (FP) PO SCH (21:11)
[2020-10-28] MEDS: PRENATAL VITAMINS W/ FOLIC ACID TABLET (FP) PO SCH (09:39)
[2020-10-28] MEDS: MELATONIN 5 MG TABLETS PO SCH (21:06)
[2020-10-28] MEDS: THIAMINE HCL 100 MG TABLET (FP) PO SCH (21:06)
[2020-10-29] MEDS: PRENATAL VITAMINS W/ FOLIC ACID TABLET (FP) PO SCH (09:38)
[2020-10-29] MEDS: ACETAMINOPHEN 325 MG TABLET (FP) PO PRN (12:07)
[2020-10-29] MEDS: MENTHOL/PHENOL 1 EACH UD MM PRN ×2 (12:08→19:01)
[2020-10-29] MEDS: MELATONIN 5 MG TABLETS PO SCH (21:03)
[2020-10-29] MEDS: THIAMINE HCL 100 MG TABLET (FP) PO SCH (21:03)
[2020-10-30] MEDS: PRENATAL VITAMINS W/ FOLIC ACID TABLET (FP) PO SCH (09:46)
[2020-10-30] MEDS: MENTHOL/PHENOL 1 EACH UD MM PRN ×3 (09:47→21:10)
[2020-10-30] MEDS: THIAMINE HCL 100 MG TABLET (FP) PO SCH (21:09)
[2020-10-30] MEDS: MELATONIN 5 MG TABLETS PO SCH (21:09)
[2020-10-31] MEDS: PRENATAL VITAMINS W/ FOLIC ACID TABLET (FP) PO SCH (09:45)
[2020-10-31] MEDS: MENTHOL/PHENOL 1 EACH UD MM PRN ×2 (09:46→19:23)
[2020-10-31] MEDS: MELATONIN 5 MG TABLETS PO SCH (21:34)
[2020-10-31] MEDS: THIAMINE HCL 100 MG TABLET (FP) PO SCH (21:34)
[2020-11-01] MEDS: PRENATAL VITAMINS W/ FOLIC ACID TABLET (FP) PO SCH (10:19)
[2020-11-01] MEDS: MENTHOL/PHENOL 1 EACH UD MM PRN (10:21)
[2020-11-01] MEDS: MELATONIN 5 MG TABLETS PO SCH (21:05)
[2020-11-01] MEDS: THIAMINE HCL 100 MG TABLET (FP) PO SCH (21:05)
[2020-11-01] MEDS: CHLORHEXIDINE GLUCONATE 118 ML MOUTHWASH MM SCH (21:06)
[2020-11-02 07:21] VITALS: TEMP 97.5
[2020-11-02] MEDS: PRENATAL VITAMINS W/ FOLIC ACID TABLET (FP) PO SCH (10:23)
[2020-11-02] MEDS: MENTHOL/PHENOL 1 EACH UD MM PRN ×2 (10:23→21:42)
[2020-11-02] MEDS: CHLORHEXIDINE GLUCONATE 118 ML MOUTHWASH MM SCH ×2 (10:23→21:42)
[2020-11-02] MEDS: MELATONIN 5 MG TABLETS PO SCH (21:42)
[2020-11-02] MEDS: THIAMINE HCL 100 MG TABLET (FP) PO SCH (21:42)
[2020-11-03 07:19] VITALS: BP 131/78; PULSE 54
[2020-11-03] MEDS: PRENATAL VITAMINS W/ FOLIC ACID TABLET (FP) PO SCH (09:42)
[2020-11-03] MEDS: CHLORHEXIDINE GLUCONATE 118 ML MOUTHWASH MM SCH (09:42)
== END 2020-11-03 09:55 | disposition home or self-care (01) | DRG 772 ==
LOC: YASAS 12:00 → Y3W 12:01
PROVIDERS: ADMIT Allergy & Immunology; ATTEND Allergy & Immunology
PROC: HZ42ZZZ Group Counseling for Substance Abuse Treatment, Cognitive-Behavioral (ICD-10-PCS; principal; 2020-10-23)
DX: F11.20 Opioid dependence, uncomplicated (principal); F14.20 Cocaine dependence, uncomplicated; J02.9 Acute pharyngitis, unspecified; B95.1 Streptococcus, group B, as the cause of diseases classified elsewhere
CPT/HCPCS: 87070; 87077; C9803; G0008; Q2036; U0003; U0005

== ENCOUNTER 2021-02-23 15:08 | Inpatient (IN) | payer OTHER ==
[2021-02-23] MEDS ORDERED: BISMUTH SUBSALICYLATE 524 MG/30 ML PO PRN (17:34)
[2021-02-23] MEDS ORDERED: MAG HYDROX/AL HYDROX/SIMETH 30 ML UNIT-DOSE CUP PO PRN (17:34)
[2021-02-23] MEDS ORDERED: ACETAMINOPHEN 325 MG TABLET (FP) PO PRN ×2 (17:34)
[2021-02-23] MEDS ORDERED: MAGNESIUM CITRATE 300 ML BOTTLE PO PRN (17:34)
[2021-02-23] MEDS ORDERED: ONDANSETRON *ODT* 4 MG TABLET SL PRN (17:34)
[2021-02-23] MEDS ORDERED: METHOCARBAMOL 500 MG TABLET PO PRN (17:34)
[2021-02-23] MEDS ORDERED: IBUPROFEN 400 MG TABLET (FP) PO PRN (17:34)
[2021-02-23] MEDS ORDERED: hydrOXYzine PAMOATE 25 MG CAPSULE (FP) PO PRN (17:34)
[2021-02-23] MEDS ORDERED: MAGNESIUM HYDROX 2400MG/30ML ORAL SUSPENSION 30 ML CUP PO PRN (17:34)
[2021-02-23] MEDS ORDERED: MENTHOL/PHENOL 1 EACH UD MM PRN (17:34)
[2021-02-23 17:53] VITALS: BMI 29.6
[2021-02-23] MEDS: MELATONIN 5 MG TABLETS PO SCH (22:00)
[2021-02-23] MEDS: THIAMINE HCL 100 MG TABLET (FP) PO SCH (22:00)
[2021-02-24] MEDS: diazePAM 5 MG TABLET PO PRN ×2 (10:14→17:39)
[2021-02-24] MEDS: PRENATAL VITAMINS W/ FOLIC ACID TABLET (FP) PO SCH (10:14)
[2021-02-24 13:12] LABS: HEMOGLOBIN 14.2 GM/dL (11.7-16.9); MCH 30.7 pg (25.7-33.7); MCHC 33.9 g/dl (32.0-35.9); MEAN CELL VOLUME 90.5 fl (80-96); MEAN PLT VOLUME 9.3 fl (7.5-11.1); PLATELET COUNT 189 10^3/uL (134-434); RBC 4.64 M/mm3 (4.00-5.60); RDW 12.9 % (11.9-15.9); WHITE BLOOD COUNT 4.1 K/mm3 (4.0-10.0)
[2021-02-24 13:16] LABS: CALCIUM 9.2 mg/dL (8.5-10.1)
[2021-02-24 13:17] LABS: ALBUMIN 3.7 g/dl (3.4-5.0)
[2021-02-24 13:22] LABS: BILIRUBIN,TOTAL 0.8 mg/dL (0.2-1); TOT PROT 7.7 g/dl (6.4-8.2)
[2021-02-24] MEDS: THIAMINE HCL 100 MG TABLET (FP) PO SCH (22:12)
[2021-02-24] MEDS: MELATONIN 5 MG TABLETS PO SCH (22:12)
[2021-02-25] MEDS: diazePAM 5 MG TABLET PO PRN (10:14)
[2021-02-25] MEDS: PRENATAL VITAMINS W/ FOLIC ACID TABLET (FP) PO SCH (10:14)
[2021-02-25] MEDS ORDERED: diazePAM 5 MG TABLET PO PRN (12:59)
[2021-02-25] MEDS ORDERED: diazePAM 5 MG TABLET PO SCH (17:00)
[2021-02-25] MEDS: MELATONIN 5 MG TABLETS PO SCH (22:12)
[2021-02-25] MEDS: THIAMINE HCL 100 MG TABLET (FP) PO SCH (22:12)
[2021-02-26] MEDS ORDERED: diazePAM 5 MG TABLET PO PRN (00:01)
[2021-02-26] MEDS ORDERED: diazePAM 5 MG TABLET PO SCH (06:00)
[2021-02-26] MEDS: PRENATAL VITAMINS W/ FOLIC ACID TABLET (FP) PO SCH (10:16)
[2021-02-26] MEDS: THIAMINE HCL 100 MG TABLET (FP) PO SCH (22:17)
[2021-02-26] MEDS: MELATONIN 5 MG TABLETS PO SCH (22:17)
[2021-02-27] MEDS ORDERED: diazePAM 5 MG TABLET PO ONE (05:00)
[2021-02-27 08:56] VITALS: BP 105/57; PULSE 50; TEMP 97.3
[2021-02-27] MEDS: PRENATAL VITAMINS W/ FOLIC ACID TABLET (FP) PO SCH (10:19)
== END 2021-02-27 10:36 | disposition other institution (70) | DRG 773 ==
LOC: YASAS 15:08 → Y3N 18:41 → UNDOADMIN 18:41 → Y3N 18:47
PROVIDERS: ADMIT Allergy & Immunology; ATTEND Allergy & Immunology
PROC: HZ2ZZZZ Detoxification Services for Substance Abuse Treatment (ICD-10-PCS; principal; 2021-02-23)
DX: F13.230 Sedative, hypnotic or anxiolytic dependence with withdrawal, uncomplicated (principal); F11.20 Opioid dependence, uncomplicated; F12.20 Cannabis dependence, uncomplicated; F17.210 Nicotine dependence, cigarettes, uncomplicated; F41.9 Anxiety disorder, unspecified
CPT/HCPCS: 36415; 80053; 85027; 86780; C9803; U0003; U0005